=== PATIENT | male | born 1960 | race Caucasian/White ===

== ENCOUNTER 2024-09-19 10:02 | Emergency (ER) | payer OTHER, SELFPAY ==
[2024-09-19 10:11] VITALS: BP 173/93
[2024-09-19 11:22] VITALS: BP 160/99
[2024-09-19 12:00] VITALS: BP 150/94
[2024-09-19 13:00] VITALS: BP 164/101
[2024-09-19 13:16] LABS: % Basophils 0.6 % (0-2); % Eosinophils 1.9 % (0-6); % Immature Granulocytes 0.3 % (0-0.5); % Lymphocytes 17.7 % (20.5-51.1); % Monocytes 10.7 % (1.7-9.3); % Neutrophils 68.8 % (42.2-75.2); Absolute Eosinophils 0.1 10^3/uL (0-0.7); Absolute Lymphocytes 1.2 10^3/uL (1.2-3.4); Absolute Monocytes 0.7 10^3/uL (0.1-0.6); Absolute Neutrophils 4.6 10^3/uL (1.4-6.5); Hematocrit 41.2 % (39.0-52.0); Hemoglobin 14.7 g/dL (13.0-18.0); Mean Corp Hgb Conc. 35.7 g/dL (33.0-37.0); Mean Corpuscular Hgb 35.3 pg (27.0-31.0); Mean Platelet Volume 9.8 fL (7.4-10.4); Nucleated Red Blood Cells % 0 % (-); Platelet Count 188 10^3/uL (130-400); Red Blood Cell Count 4.16 10^6/uL (4.70-6.10); Red Cell Dist. Width 11.4 % (11.5-14.5); White Blood Cell Count 6.7 10^3/uL (4.8-10.8)
[2024-09-19 13:24] LABS: Blood Urea Nitrogen 16 mg/dl (9-20); Calcium 10.2 mg/dl (8.4-10.2); Carbon Dioxide 27 mmol/L (22-30); Chloride 106 mmol/L (98-107); Glucose 99 mg/dl (70-99); Potassium 4.5 mmol/L (3.5-5.1); Sodium 139 mmol/L (135-145); eGFR > 60.00
--- NOTE | 2024-09-19 13:47 | ED.GENMED ---
History of Present Illness
General
Chief Complaint: Dizziness
Source: patient and spouse
Time Seen by Provider: 09/19/24 11:30
History of Present Illness
History of Present Illness:
63-year-old male presents to the emergency room complaining of episodic dizziness. Patient feels a sense of the room spinning and feeling off balance at times. This occurs when he bends over or turns his head. Symptoms have been occurring for the
past couple days. In between episodes he feels totally fine. No difficulty walking. No focal weakness numbness or tingling. No headache.
Phy Exam
Physical Exam
Physical Exam:
General: Awake, Alert, Oriented X3. No acute distress.
Vitals: unremarkable
Head: Atraumatic
Eyes: Pupils equal, EOMI, positive horizontal nystagmus
Throat: Airway intact, no exudates
Neck: Trachea midline
Lungs: Clear and equal b/l
Heart: Regular rate, no murmurs
Abd: Soft, Nontender, No pulsatile mass
Neuro: Cranial nerves intact, muscle strength equal bilaterally, cerebellar exam normal
Skin: Warm, dry, no rash
Extremities: pulses equal b/l, no edema
Course
Orders/Labs/Results
Orders:
Orders
09/19/24 11:14
ECG [Electrocardiogram (*1)] Urgent
Reason for Study: Vertigo / Dizzy
EKG- Treatment ONCE
09/19/24 12:31
Basic Metabolic Panel Urgent
Complete Blood Count/With Diff Urgent
Abnormal Lab Results
09/19/24
12:31
RBC 4.16 L 10^6/uL
(4.70-6.10)
MCV 99.0 H fL
(80.0-94.0)
MCH 35.3 H pg
(27.0-31.0)
RDW 11.4 L %
(11.5-14.5)
Absolute Monos (auto) 0.7 H 10^3/uL
(0.1-0.6)
Lymphocytes % 17.7 L %
(20.5-51.1)
Monocytes % 10.7 H %
(1.7-9.3)
09/19/24 12:31
09/19/24 12:31
Vital Signs
Initial and Last Documented VS:
Initial Vital Signs
Temp Pulse Resp BP Pulse Ox
97.9 F 62 16 173/93 99
09/19/24 10:11 09/19/24 10:11 09/19/24 10:11 09/19/24 10:11 09/19/24 10:11
Last Documented Vital Signs
Temp Pulse Resp BP Pulse Ox
97.9 F 54 13 164/101 97
09/19/24 10:11 09/19/24 13:15 09/19/24 12:15 09/19/24 13:00 09/19/24 13:15
MDM/Problems Addressed
Differential Diagnosis Includes:
BPPV, labyrinthitis, central vertigo
MDM/Problems Addressed:
Patient presents with episodic vertigo. I do not believe he has central vertigo based upon his physical exam and overall presentation. PA student performed a Janice-Hallpike maneuver which elicited significant dizziness and vertigo with head turning
to the left. Paste needed and also performed Alex maneuvers. Patient feels somewhat better. Stable for discharge. Follow-up with primary care doctor and given prescription for vestibular therapy
*EKG
Interpreted by ED Provider?: Yes
Heart Rate: 55
Rate: bradycardiac
Rhythm: sinus
[place]: normal axis
Interval: normal interval
QRS Pattern: normal QRS
Ischemia: no ischemia
*Asphalt Roller Person Interpretation
Rate: normal
Interpretation: normal
Rhythm: sinus
*Critical Care Note
Total Time (30-74mins, 75-104mins- exclusive of procedures): Not Applicable
ED Attending Note
-
Portions of this chart may have been created with voice recognition software.� Occasional wrong word or��sound alike� substitutions may have occurred due to the inherent limitations of voice recognition software.
Discharge Plan
Departure
Patient Disposition: Home (Routine Discharge)
Date of Disposition: 09/19/24
Time of Disposition: 13:47
Patient with high blood pressure during this ER visit?: Yes
Condition: Good
Discharge Problem:
Vertigo, Benign paroxysmal positional vertigo
Instructions: Vertigo (a type of dizziness), Exercises (maneuvers) for benign paroxysmal positional vertigo
Referrals:
Kayla Thomas DO [Family Provider] -
Activity Restrictions/Additional Instructions:
I have given you a prescription for physical therapy for your vertigo. Call for an appointment. You can take meclizine (which is available [id number]) if you need medication to help with the symptoms.
Interventions
Interventions:
*General Assessment Last Done: 09/19/24 11:18
*ED- Fall Risk Assessment Last Done: 09/19/24 11:18
*Nursing Disposition Last Done: 09/19/24 13:55
ED- Neurological Assessment Last Done: 09/19/24 11:18
ED- Cardiac Assessment Last Done: 09/19/24 11:18
ED Swallowing Screen Last Done: 09/19/24 11:18
Discharge Date and Time
Print Language: UPPER SORBIAN
== END 2024-09-19 14:38 | disposition home or self-care (01) ==
LOC: EMR 10:02
PROVIDERS: EMERGENCY PHYSICIAN Emergency Medicine; FAMILY PHYSICIAN Family Medicine
DX: H81.10 Benign paroxysmal vertigo, unspecified ear (principal)
CPT/HCPCS: 99283; 80048; 85025; 93005